=== PATIENT | male | born 1980 | race Caucasian/White ===

== ENCOUNTER 2018-09-07 12:43 | Emergency (ER) | payer OTHER ==
[~2018-09-07] VITALS: Ht 182.9 cm; Wt 90.7 kg
[2018-09-07 13:09] LABS: ABSOLUTE BASOPHILS 0.2 thou/uL (0.0-0.2); ABSOLUTE EOSINOPHILS 0.1 thou/uL (0.0-0.7); ABSOLUTE LYMPHOCYTES 2.1 thou/uL (0.8-5.3); ABSOLUTE MONOCYTES 0.6 thou/uL (0.0-1.2); ABSOLUTE NEUTROPHILS 4.1 thou/uL (1.6-8.1); BASOPHILS 2.8 %; EOSINOPHILS 1.5 %; HEMATOCRIT 44.1 % (42.0-52.0); HEMOGLOBIN 15.3 gm/dL (14.0-18.0); LYMPHOCYTES 29.1 %; MCH 31.5 pg (26.0-34.0); MCHC 34.7 g/dL (28.0-37.0); MCV 90.7 fL (80.0-100.0); MPV 9.5 fl. (7.2-11.1); NUCLEATED RBCS 0 /100WBC; PLATELET COUNT* 184 thou/uL (150-400); POLYS 57.6 %; RBC 4.87 mil/uL (4.50-6.00); RDW-CV 15.5 % (10.5-14.5); WBC 7.1 thou/uL (4.0-11.0)
[2018-09-07 13:24] LABS: ALBUMIN 3.4 g/dL (3.4-5.0); ALKALINE PHOSPHATASE 66 U/L (46-116); ANION GAP 13 mmol/L (7-16); BUN 16 mg/dL (7-18); CALCIUM 8.1 mg/dL (8.5-10.1); CHLORIDE 105 mmol/L (98-107); CO2 28 mmol/L (21-32); CREATININE 0.8 mg/dL (0.6-1.3); GLUCOSE 104 mg/dL (70-99); LIPASE 168 U/L (73-393); POTASSIUM 3.7 mmol/L (3.5-5.1); SGOT 45 U/L (15-37); SGPT 61 U/L (30-65); SODIUM 146 mmol/L (136-145); TOTAL BILIRUBIN 0.3 mg/dL (<0.1-1.0); TOTAL PROTEIN 7.6 g/dL (6.4-8.2); TROPONIN-I LEVEL <0.06 ng/mL (<0.06)
[2018-09-07 13:29] LABS: URINE BILIRUBIN NEGATIVE (Negative); URINE BLOOD NEGATIVE (Negative); URINE CLARITY CLEAR; URINE COLOR YELLOW; URINE GLUCOSE-RANDOM NEGATIVE (Negative); URINE KETONES NEGATIVE (Negative); URINE LEUKOCYTES NEGATIVE (Negative); URINE NITRITE NEGATIVE (Negative); URINE PROTEIN NEGATIVE (Negative); URINE SPECIFIC GRAVITY <= 1.005 (1.005-1.030); URINE UROBILINOGEN 0.2 E.U./dl (0.2-1.0)
[2018-09-07 16:32] VITALS: BP 148/79
--- NOTE | 2018-09-08 09:38 | EKG ---
[place] [address] ELECTROCARDIOGRAM REPORT Name: ANEL JUAREZ Room: [facility]#: [id number] Admission: 09/07/18 Attend Phys: Discharge: 09/07/18 Date of : 78 Report #: [id number] THIS REPORT FOR: //name// [facility] ED Test Date: 2018-09-07 Test Time: 14:38:05 Pat Name: ANEL JUAREZ Department: Room: Gender: [employer]: [place] : 1980 Requested By: Chinmay Rosado Order Number: [id number] MD: Alo Silva Measurements Intervals [place] Rate: 83 P: 38 ME: 166 QRS: 61 QRSD: 110 T: 37 QT: 383 QTc: 450 Interpretive Statements Sinus rhythm Incomplete right bundle-branch block Probable left ventricular hypertrophy ST elev, probable normal early repol pattern No previous ECG available for comparison Electronically Signed On 09-08-2018 9:38:09 CDT by Alo Silva [email or web address] <ELECTRONICALLY SIGNED> By: Alo Silva MD, [facility] 09/08/18 0938 1438 1438 Alo Silva MD, FACC /EPI
== END 2018-09-07 16:33 | disposition home or self-care (01) ==
LOC: M.ERS 12:43
PROVIDERS: Emergency Medicine Emergency Medical Services
DX: F10.129 Alcohol abuse with intoxication, unspecified (principal); Y90.9 Presence of alcohol in blood, level not specified; R11.2 Nausea with vomiting, unspecified; F17.210 Nicotine dependence, cigarettes, uncomplicated; Z86.19 Personal history of other infectious and parasitic diseases; Z88.0 Allergy status to penicillin

== ENCOUNTER 2018-09-07 22:07 | Emergency (ER) | payer OTHER ==
[~2018-09-07] VITALS: Ht 182.9 cm; Wt 90.7 kg
[2018-09-07 22:45] LABS: ABSOLUTE BASOPHILS 0.1 thou/uL (0.0-0.2); ABSOLUTE LYMPHOCYTES 1.6 thou/uL (0.8-5.3); ABSOLUTE MONOCYTES 0.6 thou/uL (0.0-1.2); ABSOLUTE NEUTROPHILS 5.5 thou/uL (1.6-8.1); BASOPHILS 1.1 %; EOSINOPHILS 0.6 %; HEMATOCRIT 45.3 % (42.0-52.0); HEMOGLOBIN 15.7 gm/dL (14.0-18.0); LYMPHOCYTES 20.7 %; MCH 31.6 pg (26.0-34.0); MCHC 34.6 g/dL (28.0-37.0); MCV 91.5 fL (80.0-100.0); MONOCYTES 7.2 %; MPV 9.6 fl. (7.2-11.1); NUCLEATED RBCS 0 /100WBC; PLATELET COUNT* 178 thou/uL (150-400); POLYS 70.4 %; RBC 4.95 mil/uL (4.50-6.00); RDW-CV 15.7 % (10.5-14.5); WBC 7.8 thou/uL (4.0-11.0)
[2018-09-07 23:09] LABS: ALBUMIN 3.6 g/dL (3.4-5.0); ALKALINE PHOSPHATASE 69 U/L (46-116); ANION GAP 13 mmol/L (7-16); BUN 17 mg/dL (7-18); CALCIUM 8.5 mg/dL (8.5-10.1); CHLORIDE 106 mmol/L (98-107); CO2 27 mmol/L (21-32); CREATININE 0.8 mg/dL (0.6-1.3); GLUCOSE 112 mg/dL (70-99); POTASSIUM 3.7 mmol/L (3.5-5.1); SGOT 41 U/L (15-37); SGPT 61 U/L (30-65); SODIUM 146 mmol/L (136-145); TOTAL BILIRUBIN 0.2 mg/dL (<0.1-1.0); TOTAL PROTEIN 7.7 g/dL (6.4-8.2); TROPONIN-I LEVEL <0.06 ng/mL (<0.06)
[2018-09-07 23:32] LABS: AMP/METHAMP Negative (Negative); BARBITURATES Negative (Negative); BENZODIAZEPINES Negative (Negative); COCAINE Negative (Negative); METHADONE Negative (Negative); OPIATES Negative (Negative); PCP Negative (Negative); THC Negative (Negative)
[2018-09-08 00:50] VITALS: BP 153/87
--- NOTE | 2018-09-08 09:45 | EKG ---
[place] [address] ELECTROCARDIOGRAM REPORT Name: ANEL JUAREZ Room: [facility]#: [id number] Admission: 09/07/18 Attend Phys: Discharge: 09/08/18 Date of : 78 Report #: [id number] THIS REPORT FOR: //name// [facility] ED Test Date: 2018-09-07 Test Time: 22:11:26 Pat Name: ANEL JUAREZ Department: Room: Gender: [employer]: [place]ISS : 1980 Requested By: Talisha Vega Order Number: [id number] MD: Alo Silva Measurements Intervals [place] Rate: 94 P: 50 DC: 150 QRS: 56 QRSD: 106 T: 25 QT: 358 QTc: 448 Interpretive Statements Sinus rhythm Incomplete right bundle-branch block ST elev, probable normal early repol pattern No previous ECG available for comparison Electronically Signed On 09-08-2018 9:45:35 CDT by Alo Silva [email or web address] <ELECTRONICALLY SIGNED> By: Alo Silva MD, [facility] 09/08/18 0945 10 10 Alo Silva MD, [facility] /EPI
== END 2018-09-08 00:50 | disposition home or self-care (01) ==
LOC: M.ERS 22:07
PROVIDERS: Physician Assistant
DX: F10.129 Alcohol abuse with intoxication, unspecified (principal); Y90.8 Blood alcohol level of 240 mg/100 ml or more; R07.89 Other chest pain; F17.210 Nicotine dependence, cigarettes, uncomplicated; Z88.0 Allergy status to penicillin; Z86.19 Personal history of other infectious and parasitic diseases